=== PATIENT | female | born 1985 | race Caucasian/White ===

== ENCOUNTER 2020-07-13 20:28 | Emergency (ER) | payer OTHER ==
[2020-07-13 21:53] LABS: BASOPHIL 0.5 % (0-2); EOSINOPHIL 2.2 % (0-5); HGB 13.2 g/dl (12.5-16.0); LYMPHOCYTE 25.8 % (15-48); MCH 30.2 pg (25.0-31.0); MCHC 33.8 g/dL (32.0-36.0); MCV 89.2 fL (78.0-100.0); MONOCYTE 7.7 % (0-12); MPV 11.3 fL (6.0-9.5); NEUTROPHIL 63.5 % (41-80); NRBC 0; PLT 234 K/uL (150-400); RBC 4.37 M/uL (4.20-5.40); RDW 12.9 % (11.5-14.0); WBC 7.3 K/uL (4.0-10.5)
[2020-07-13 22:07] LABS: INR 1.11 (0.9-1.2); PROTHROMBIN TIME 13.6 SECONDS (11.4-13.6); PTT 28.9 SECONDS (22.2-34.7)
[2020-07-13 22:08] LABS: D-DIMER 0.35 ug/mLFEU (0.00-0.41)
[2020-07-13 22:12] LABS: ALBUMIN 3.8 g/dL (3.4-5.0); BILIRUBIN - TOTAL 0.2 mg/dL (0.2-1.0); BUN/CREAT RATIO (CALC) 13.3 RATIO; CREATININE 0.75 mg/dL (0.51-0.95); GLOBULIN (CALCULATION) 3.5 g/dL; POTASSIUM 3.7 mmol/L (3.5-5.1); TOTAL PROTEIN 7.3 g/dL (6.4-8.2)
== END 2020-07-13 23:15 | disposition home or self-care (01) ==
LOC: FER 20:28
PROVIDERS: Emergency Medicine Emergency Medical Services
DX: S70.12XA Contusion of left thigh, initial encounter (principal); Z79.899 Other long term (current) drug therapy; X58.XXXA Exposure to other specified factors, initial encounter
CPT/HCPCS: 36415; 80053; 85025; 85379; 85610; 85730; 93971

== ENCOUNTER 2021-02-20 22:22 | Emergency (ER) | payer OTHER ==
[2021-02-21 06:02] LABS: BASOPHIL 0.7 % (0-2); HCT 39.9 % (37.0-47.0); HGB 13.5 g/dl (12.5-16.0); LYMPHOCYTE 30.7 % (15-48); MCH 29.3 pg (25.0-31.0); MCHC 33.8 g/dL (32.0-36.0); MCV 86.7 fL (78.0-100.0); MONOCYTE 6.6 % (0-12); MPV 11.5 fL (6.0-9.5); NEUTROPHIL 60.8 % (41-80); NRBC 0; PLT 272 K/uL (150-400); RDW 12.6 % (11.5-14.0); WBC 5.9 K/uL (4.0-10.5)
[2021-02-21 06:33] LABS: ALBUMIN 4.1 g/dL (3.4-5.0); BILIRUBIN - TOTAL 0.5 mg/dL (0.2-1.0); BUN/CREAT RATIO (CALC) 11.3 RATIO; CREATININE 0.62 mg/dL (0.51-0.95); GLOBULIN (CALCULATION) 2.8 g/dL; POTASSIUM 3.3 mmol/L (3.5-5.1); TOTAL PROTEIN 6.9 g/dL (6.4-8.2)
[2021-02-21] MEDS ORDERED: ONDANSETRON ODT4 MG PO (07:14)
== END 2021-02-21 09:22 | disposition home or self-care (01) ==
LOC: FER 22:22
PROVIDERS: Emergency Medicine
DX: U07.1 COVID-19 (principal)
CPT/HCPCS: 36415; 71045; 80053; 84484; 85025; 85379; 93005; J1885; J2405; J7030